=== PATIENT | female | born 1965 | race Caucasian/White ===

== ENCOUNTER → 2018-12-12 14:19 | Outpatient (CLI) | payer OTHER, SELFPAY ==
--- NOTE | 2018-12-12 14:24 | MM_ITS ---
PROCEDURE: MM DIG SCREENING MAMM BI W/CAD CLINICAL INDICATION: screening There is no personal or family history of breast cancer. The patient had previous mammogram was more than 10 years ago and are not available for review COMPARISON: No exams were available for comparison TECHNIQUE: Standard CC and MLO images were obtained. R2 CAD reviewed. FINDINGS: Scattered fibroglandular densities are seen in both breasts and the findings are bilateral and symmetrical. There are few scattered benign-appearing microcalcifications in both breasts. There is no suspicious lesion on the no suspicious microcalcifications. IMPRESSION: Fibrofatty parenchyma with no suspicious lesions seen BI-RAD Category: 2 Benign Finding(s) FOLLOW-UP: 1YR 1 Year Follow-up (A letter has been sent to the patient regarding results of the study.) Dictated by: Dr. Maurilio Lombardi MD 12/14/2018 08:[address] Maurilio Lombardi MD in [place] 12/14/2018 08:30
--- NOTE | 2018-12-12 14:24 | US_ITS ---
PROCEDURE: US TRANSVAGINAL CLINICAL INDICATION: meopause COMPARISON: No exams were available for comparison FINDINGS: The uterus is enlarged somewhat at 9 x 4 x 6 cm with a combined endometrial thickness of 8 mm. Nabothian cysts are present. There is some heterogeneous echogenicity of the uterus. A 2 x 1.8 cm area of heterogeneous echogenicity is present in the mid aspect of the uterus consistent with fibroid. An additional areas noted in the lateral aspect of the uterus on the right at 1.8 cm consistent with a fibroid. Left ovary is unremarkable at 2 x 1.5 cm. Right ovary is 2.4 x 2 cm and contains a 2 cm cyst. No cul-de-sac fluid evident. IMPRESSION: Mildly bulky uterus with 2 fibroids. 2 cm right ovarian cyst Dictated by: Kb Birmingham MD 12/12/2018 18:13 Electronically signed by Kb Birmingham MD in [facility] 12/12/2018 18:13
== END ==
PROVIDERS: PCP Family Medicine; Visit Provider Obstetrics & Gynecology
DX: Z12.31 Encounter for screening mammogram for malignant neoplasm of breast (principal); N95.1 Menopausal and female climacteric states
CPT/HCPCS: 76830; 77067